=== PATIENT | male | born 1955 | race Two or more races ===

== ENCOUNTER 2018-07-14 19:01 | Emergency (ER) | payer MEDICAID, MEDICARE, SELFPAY ==
[~2018-07-14] VITALS: Ht 172.7 cm; Wt 90.0 kg
[2018-07-14 19:10] VITALS: BP 120/75
[2018-07-14] MEDS ORDERED: TRAZ-136 PO (19:22)
[2018-07-14] MEDS ORDERED: RISP0.253 PO (19:23)
[2018-07-14] MEDS ORDERED: HYDR25CA PO (19:23)
== END 2018-07-14 19:55 | disposition home or self-care (01) ==
LOC: ED 19:30
DX: J00 Acute nasopharyngitis [common cold] (principal); B97.89 Other viral agents as the cause of diseases classified elsewhere; F31.9 Bipolar disorder, unspecified; J44.9 Chronic obstructive pulmonary disease, unspecified
CPT/HCPCS: 99283

== ENCOUNTER 2018-10-13 11:24 | Emergency (ER) | payer MEDICARE ==
[~2018-10-13] VITALS: Ht 172.7 cm; Wt 94.3 kg
[~2018-10-13 11:24] MED LIST: HYDR25CA PO; RISP0.253 PO; TRAZ50TA66 PO
[2018-10-13 11:28] VITALS: BP 126/74
[2018-10-13] MEDS ORDERED: ASPIRIN 81 MG TABLET CHEW PO ONE (12:30)
[2018-10-13 12:31] LABS: BASOPHILS # (AUTO) 0.03 x10^3/uL (0-0.1); BASOPHILS % (AUTO) 0 % (0-1); EOSINOPHILS # (AUTO) 0.33 x10^3/uL (0-0.4); EOSINOPHILS % (AUTO) 4 % (1-7); LYMPHOCYTES # (AUTO) 2.04 x10^3/uL (1-3.4); LYMPHOCYTES % (AUTO) 27 % (22-44); MD NO; MEAN CORPUSCULAR HEMOGLOBIN 29.9 pg (27.5-34.5); MEAN CORPUSCULAR HGB CONC 33.6 g/dL (33.2-36.2); MEAN PLATELET VOLUME 7.6 fL (7.4-10.4); MONOCYTES # (AUTO) 0.77 x10^3/uL (0.2-0.8); MONOCYTES % (AUTO) 10 % (2-9); NEUTROPHILS # (AUTO) 4.32 x10^3/uL (1.8-6.8); NEUTROPHILS % (AUTO) 58 % (42-75); PLATELET COUNT 304 x10^3/uL (130-400); RED BLOOD COUNT 4.68 x10^6/uL (4.38-5.82); RED CELL DISTRIBUTION WIDTH 13.6 % (9.4-14.8)
[2018-10-13 12:43] LABS: ALBUMIN 3.4 g/dL (3.4-5.0); ANION GAP 8 mmol/L (5-15); CALCIUM 8.5 mg/dL (8.5-10.1); CHLORIDE 109 mmol/L (98-107); CREATININE 1.33 mg/dL (0.7-1.3)
[2018-10-13 12:46] LABS: TROPONIN I < 0.015 ng/mL (0.000-0.045)
== END 2018-10-13 13:18 | disposition home or self-care (01) ==
LOC: ED 13:10
DX: J20.8 Acute bronchitis due to other specified organisms (principal); R07.89 Other chest pain; F31.9 Bipolar disorder, unspecified; Z87.891 Personal history of nicotine dependence
CPT/HCPCS: 36415; 71045; 80048; 82040; 84484; 85025; 93005; 99284

== ENCOUNTER 2020-08-28 14:05 | Emergency (ER) | payer MEDICARE ==
[~2020-08-28] VITALS: Ht 172.7 cm; Wt 116.2 kg
[2020-08-28 14:28] VITALS: BP 182/86
--- NOTE | 2020-08-28 15:07 | NUR ---
NOT IN LOBBY WHEN CALLED FOR ROOM
== END 2020-08-28 16:34 | disposition left against medical advice (07) ==
LOC: ED 14:20
DX: M25.561 Pain in right knee (principal); W18.39XA Other fall on same level, initial encounter; Y93.89 Activity, other specified; Y92.89 Other specified places as the place of occurrence of the external cause; Y99.8 Other external cause status
CPT/HCPCS: 99283

== ENCOUNTER 2020-08-28 17:33 | Emergency (ER) | payer MEDICARE ==
[~2020-08-28] VITALS: Ht 172.7 cm; Wt 115.6 kg
[2020-08-28 17:39] VITALS: BP 157/78
--- NOTE | 2020-08-28 18:18 | NUR ---
PT AMBULATORY FROM LOBBY TO BED.
[2020-08-28] MEDS ORDERED: KETOROLAC 30 MG/1 ML IM ONE (19:00)
--- NOTE | 2020-08-28 19:14 | NUR ---
DC EDUCATION PROVIDED, PT DEMONSTRATES UNDERSTANDING. PT AMBULATED STEADILY TO DC WITH RN
--- NOTE | 2020-08-28 19:16 | NUR ---
pt refused the edith bandage at time of discharge. information given, and pt ambulated out of ER
== END 2020-08-28 19:27 | disposition home or self-care (01) ==
LOC: ED 17:40
DX: M17.11 Unilateral primary osteoarthritis, right knee (principal); M25.561 Pain in right knee; J44.9 Chronic obstructive pulmonary disease, unspecified; F17.200 Nicotine dependence, unspecified, uncomplicated
CPT/HCPCS: 29540; 99282; 99283